=== PATIENT | male | born 1970 | race Two or more races ===

== ENCOUNTER 2016-09-23 16:41 | Emergency (ER) | payer MEDICAID ==
[~2016-09-23] VITALS: Ht 182.9 cm; Wt 111.1 kg
[2016-09-23 17:29] LABS: APPEARANCE,URINE Clear (CLEAR); BILIRUBIN,URINE Negative (NEGATIVE); BLOOD, URINE Trace-lysed Ery/uL (NEGATIVE); COLOR,URINE Yellow (YELLOW); KETONES,URINE Negative (NEGATIVE); LEUKOCYTE ESTERASE ,URINE Small (NEGATIVE); NITRITE, URINE Negative (NEGATIVE); PH,URINE 5.5 (5.0-8.0); PROTEIN,URINE Negative (NEGATIVE); UGLUCOSE Negative (NEGATIVE); UROBILINOGEN,URINE 0.2 EU/dL (0.2)
--- NOTE | 2016-09-23 17:43 | NUR ---
PT URINATED BLOOD X1 TODAY UA SENT TO LAB. NO PAIN AWAITING EVALUATION BY ER PROVIDER.
[2016-09-23 17:44] LABS: ADD URINE CULTURE YES; BACTERIA,URINE Few /HPF (None Seen); RBC,URINE 0-2 /HPF (0-2); SQUAMOUS EPITHELIAL CELL,UR Rare /HPF (None Seen)
[2016-09-23 18:33] VITALS: BP 138/85
--- NOTE | 2016-09-23 18:34 | NUR ---
Patient discharged to home in stable condition. Written and verbal after care instructions given. Patient verbalizes understanding of instruction.
[2016-09-26 04:09] LABS: *NEISSERIA GONORRHOEAE NAA Negative (Negative)
== END 2016-09-23 18:34 | disposition home or self-care (01) ==
LOC: ER 17:19
DX: R31.9 Hematuria, unspecified (principal); F17.210 Nicotine dependence, cigarettes, uncomplicated; Z88.0 Allergy status to penicillin; N39.0 Urinary tract infection, site not specified
CPT/HCPCS: 81000-TC; 87086-TC; 87491; 87591; A4606; Z7610